=== PATIENT | female | born 1990 | race African-American/Black ===

== ENCOUNTER 2016-06-22 00:54 | Emergency (ER) | payer SELFPAY ==
--- NOTE | ~2016-06-22 | CR72 ---
[facility]. [facility] A Service of [facility] & [facility] RADIOLOGY TEXT RESULTS PATIENT: TAL THORNTON LOCATION: SED : 88 UNIT #: [id number] AGE: [address]: Dhiraj Reed MD SEX: F ORDER DR: [id number] [place] [id number] E MR#: [id number] Acc #: [id number] NAME: TAL THORNTON : 1990 SEX: F STUDY DATE/TIME: 06/22/2016 1:32 UNIT: SED ROOM: STUDY DESCRIPTION: CR Chest Single View Portable Attending Physician: Dhiraj Reed M.D. Ordering Physician: Dhiraj Reed M.D. Primary Care Physician: No Primary Care Physician MEDICAL IMAGING REPORT This report is preliminary unless electronic signature is present. EXAM AP portable chest 06/22/2016. HISTORY 25-year-old female in the ED complaining of chest pain and shortness of air beginning about 4 hours prior to arrival. TECHNIQUE AP portable chest x-ray. FINDINGS The examination is limited by patient body habitus and AP portable radiographic technique. The lungs are clear. No visible pulmonary filtrate or pleural effusion. Heart size and pulmonary vascularity are within normal limits. IMPRESSION Negative chest with technical limitations as noted above. Dictated by... Rico Kaba M.D. THIS IS AN ELECTRONICALLY VERIFIED REPORT Rico Kaba M.D. at 06/22/2016 9:59 PM RGW/gz TD: 06/22/2016 12:11 JOB #: [id number] MEDICAL IMAGING REPORT
--- NOTE | ~2016-06-22 | EKG ---
PATIENT: TAL THORNTON UNIT #: [id number] Ventricular Rate: 105 BPM Atrial Rate: 105 BPM P-R Interval: 148 ms QRS Duration: 90 ms Q-T Interval: 328 ms QTC Calculation(Bezet): 433 ms P Lincoln: 37 degrees Calculated R Lincoln: 20 degrees Calculated T Lincoln: 7 degrees Diagnosis Line: Sinus tachycardia Diagnosis Line: Minimal voltage criteria for LVH, may be normal Diagnosis Line: variant Diagnosis Line: Otherwise normal ECG Diagnosis Line: No previous ECGs available Diagnosis Line: Confirmed by RAQEUL OLVERA MD ([id number]) on 06/26/2016 Diagnosis Line: 9:38:37 AM INTERPRETING MD: MAY JETER
[~2016-06-22 00:54] MED LIST: BLOOD PRESSURE MED
[2016-06-22 01:12] LABS: BASOPHIL% 0.6 % (0-2.5); EOSINOPHIL# 0.1 X10e3 (0-0.7); EOSINOPHIL% 1.4 % (0.0-7.0); HEMATOCRIT 39.5 % (35.0-45.0); HEMOGLOBIN 12.6 gm/dL (12.0-16.0); LYMPHOCYTE# 2.4 X10e3 (1.0-3.5); LYMPHOCYTE% 29.6 % (17.0-45.0); MEAN CELL VOLUME 81.7 FL (83-96); MEAN CORPUSCULAR HEMOGLOBIN 26.1 PG (28-34); MEAN CORPUSCULAR HGB CONC 31.9 g/dL (30-36); MEAN PLATELET VOLUME 8.4 FL (6.5-11.5); MONOCYTE# 0.6 X10e3 (0-1.0); MONOCYTE% 7.9 % (3.0-12.0); NEUTROPHIL# 4.9 X10e3 (1.5-7.1); NEUTROPHIL% 60.5 % (40-75); PLATELET COUNT 297 X10e3 (140-420); RED BLOOD COUNT 4.83 X10e (3.90-5.30); WHITE BLOOD COUNT 8.1 X10e3 (4.0-10.5)
[2016-06-22 01:13] LABS: DIFF IND NO
[2016-06-22 01:31] LABS: PROTHROMBIN TIME (PATIENT) 11.6 SECONDS (9.5-12.4)
[2016-06-22 01:32] LABS: ALBUMIN SERUM 4.3 g/dL (3.5-5.0); ALKALINE PHOSPHATASE 84 U/L (32-92); ALT (SGPT) 24 U/L (10-40); AST (SGOT) 22 U/L (10-42); BILIRUBIN, DIRECT 0.1 mg/dL (0.0-0.2); BILIRUBIN,INDIRECT 0.1 mg/dL (0.0-0.9); BILIRUBIN,TOTAL 0.2 mg/dL (0.2-2.0); BLOOD UREA NITROGEN 10 mg/dL (9-23); BUN/CREATININE RATIO 14.28; CALCIUM SERUM 9.3 mg/dL (8.4-10.2); CARBON DIOXIDE 27 mmol/L (22-31); CHLORIDE 101 mmol/L (100-111); CREATININE SERUM 0.7 mg/dL (0.6-1.4); GLOM FILT RATE Estimated ABOVE60 mL/min (>60); GLUCOSE FASTING 122 mg/dL (70-110); POTASSIUM 3.2 mmol/L (3.5-5.1); PROTEIN TOTAL SERUM 8.5 g/dL (6.0-8.3); SODIUM 134 mmol/L (135-145)
[2016-06-22 01:37] LABS: POC - CKMB 1.7 ng/mL (0.0-7.9); POC - MYOGLOBIN 82.8 ng/mL (0.0-169.0); POC - TROPONIN <0.05 ng/mL (<=0.05)
[2016-06-22 01:39] LABS: PARTIAL THROMBOPLASTIN TIME 30.8 SECONDS (25.6-38.1)
[2016-06-22] MEDS ORDERED: ALBUTEROL17 GM INH (02:41)
[2016-06-22] MEDS ORDERED: ALBUTEROL0.83 MG/ML INH (02:41)
== END 2016-06-22 02:41 | disposition home or self-care (01) ==
LOC: SED 00:54
PROVIDERS: Emergency Medicine
DX: R07.9 Chest pain, unspecified (principal); I10 Essential (primary) hypertension; R06.02 Shortness of breath; J45.909 Unspecified asthma, uncomplicated; F41.9 Anxiety disorder, unspecified
CPT/HCPCS: 36415; 71010; 80048; 80076; 82553; 83874; 84484; 85025; 85610; 85730; 93005; 94640; 96374; 99284